=== PATIENT | female | born 1960 | race African-American/Black ===

== ENCOUNTER 2016-09-17 03:33 | Inpatient (IN) ==
[2016-09-11 12:53] LABS: MANUAL DIFF NEEDED? NO
[2016-09-11 12:53] LABS: URINE MICRO REVIEW NEEDED? NO; URINE SOURCE CLEAN CATCH
[2016-09-11 13:02] LABS: BASO% 1.1 % (0.0-0.8); EOS# 0.12 X1000 (0.0-0.7); EOS% 2.2 % (0.0-10.0); HEMATOCRIT 35.7 % (37.0-47.0); HEMOGLOBIN 12.7 g/dL (12.0-16.0); LYMPH% 25.1 % (20.5-51.1); MCH 27.7 PG (27-31); MCHC 35.6 g/dL (33-37); MCV 77.9 FL (81-99); MONO# 0.46 X1000 (0.11-0.59); MONO% 8.3 % (1.7-9.3); MPV 9.6 FL (7.4-10.4); NEUT% 63.3 % (42.2-75.2); PLT 353 X1000 (130-400); RBC 4.58 XMIL (4.2-5.4)
[2016-09-11 13:06] LABS: BILIRUBIN URINE NEGATIVE (NEGATIVE); BLOOD URINE NEGATIVE (NEGATIVE); COLOR YELLOW; GLUCOSE URINE NEGATIVE (NEGATIVE); LEUKOCYTES URINE NEGATIVE (NEGATIVE); NITRITE URINE NEGATIVE (NEGATIVE); PH URINE 6.5; PROTEIN URINE NEGATIVE (NEGATIVE); SP GRAVITY URINE 1.018; TURBIDITY URINE CLEAR (CLEAR); UROBILINOGEN URINE NORMAL (NORMAL)
[2016-09-11 13:11] LABS: UR EPITHELIAL CELLS <10 /HPF (<10); URINE BACTERIA NEGATIVE /HPF; URINE RBC <10 /HPF (<10); URINE WBC <10 /HPF (<10)
[2016-09-11 13:11] LABS: INR 0.96; PROTIME 10.1 Seconds (9.2-11.7); PTT 24.8 Seconds (22.0-36.0)
--- NOTE | 2016-09-11 13:20 | EKG Report ---
Test Performed on : 09/11/2016 12:33:27 PM Test Reason : PAT Blood Pressure : / mmHG Vent. Rate : 085 BPM Atrial Rate : 085 BPM P-R Int : 166 ms QRS Dur : 084 ms QT Int : 364 ms P-R-T Axes : 063 050 047 degrees QTc Int : 433 ms Normal sinus rhythm. Normal ECG No previous ECGs available Confirmed by Clementine PAREDES, Miles Dixon ([id number]) on 09/12/2016 7:59:32 PM
[2016-09-11 13:39] LABS: AGAP 13; BUN 12 mg/dL (8-22); CALCIUM 9.2 mg/dL (8.8-10.2); CHLORIDE 101 mmol/L (98-107); COSMO 283; POTASSIUM 3.6 mmol/L (3.5-5.1); SODIUM 141 mmol/L (136-145); TCO2 27 mmol/L (25-35)
[2016-09-17] MEDS ORDERED: REGLAN ONE (07:05)
[2016-09-17] MEDS ORDERED: CELEBREX ONE (07:05)
[2016-09-17] MEDS ORDERED: PEPCID ONE (07:05)
[2016-09-17] MEDS ORDERED: LYRICA ONE (07:05)
[2016-09-17] MEDS ORDERED: COLACE ONE (07:05)
[2016-09-17] MEDS ORDERED: KEFZOL 2 GM/D5W 2 GM/50 ML IVPB ONE (07:06)
[2016-09-17] MEDS ORDERED: LR 1,000 ML ONE ×2 (07:06→11:03)
--- NOTE | 2016-09-17 07:08 | HISTORY AND PHYSICAL ---
CHIEF COMPLAINT: Left knee pain. HISTORY OF PRESENT ILLNESS: This is a 55-year-old, black female with a long history of pain in her left knee. She had a knee scope performed several years ago which indicated severe degenerative disease. She has had considerable conservative treatment. The knee has become so severe, now she has difficulty walking and has severe pain. She was evaluated in the office and found to need a left total knee arthroplasty. The surgical procedure, as well as risks and benefits have been explained to patient and that this time she has agreed to proceed. PAST MEDICAL HISTORY/ALLERGIES: Not allergic to any medications. SERIOUS ILLNESSES: Hypertension. PAST SURGERIES: Left knee scope and hysterectomy. REGULAR MEDICATIONS: Diovan and tramadol. REVIEW OF SYSTEMS: HEENT: No history of migraines, dizziness, loss of conscious or CVA. Respiratory: She is a nonsmoker. No history of asthma, emphysema or shortness of breath. Heart: No history of heart abnormalities. Abdomen: Has history of some reflux. No history of any bowel or bladder abnormalities. PHYSICAL EXAMINATION: GENERAL: This is a 55-year-old, black female, alert and oriented. She does not have a primary care physician. HEENT: Pupils equal, round, reactive. EOM intact. NECK: Good range of motion without adenopathy. RESPIRATORY: Respirations equal, unlabored, clear bilaterally. HEART: Regular rate and rhythm. ABDOMEN: Soft, nontender. Bowel sounds present. EXTREMITIES: Complains of severe pain in her left knee. The pain radiates down her leg. She has a severe limp when she is walking. IMPRESSION: Degenerative disease, left knee. PLAN: Admit at this time for left total knee arthroplasty. Dictated by Emmanuel Landrum RN for Roderick Mcnamara MD This chart was documented by the indicated scribe, Emmanuel Landrum RN and accurately reflects the services I performed and decisions made by me, Roderick Mcnamara MD, as attested by the provider's signature. cc: Roderick Mcnamara MD
[2016-09-17] MEDS ORDERED: VANCOMYCIN ONE (07:36)
[2016-09-17] MEDS ORDERED: TORADOL ONE (07:36)
[2016-09-17] MEDS ORDERED: MARCAINE 0.25% PF/EPI 1:200,000 ONE (07:36)
[2016-09-17] MEDS ORDERED: SODIUM CHLORIDE 0.9% ONE (07:36)
[2016-09-17] MEDS ORDERED: DURAMORPH ONE (07:36)
[2016-09-17] MEDS ORDERED: CYKLOKAPRON 1,000 MG/NS 1,000 MG/100 ML IVPB ONE ×2 (07:36→07:37)
[2016-09-17] MEDS ORDERED: NEOSPORIN G.U. IRRIGANT ONE (07:37)
[2016-09-17] MEDS ORDERED: EXPAREL 1.3% ONE (07:37)
[2016-09-17] MEDS ORDERED: CLAVE SECONDARY SET 11953 ONE (07:37)
[2016-09-17] MEDS ORDERED: DIPRIVAN 1% 500 MG/50 ML BOTTLE ONE (08:29)
[2016-09-17 09:01] LABS: URINE SOURCE CATH
[2016-09-17 09:12] LABS: BILIRUBIN URINE NEGATIVE (NEGATIVE); BLOOD URINE NEGATIVE (NEGATIVE); CLARITY CLEAR (CLEAR); COLOR YELLOW; GLUCOSE URINE NEGATIVE (NEGATIVE); LEUKOCYTES URINE NEGATIVE (NEGATIVE); NITRITE URINE NEGATIVE (NEGATIVE); PROTEIN URINE NEGATIVE (NEGATIVE); SP GRAVITY URINE 1.015
[2016-09-17 09:20] LABS: URINE CAST NONE SEEN /LPF; URINE EPITHELIAL CELLS <10 /HPF (<10); URINE RBC <10 /HPF (<10); URINE WBC <10 /HPF (<10)
[2016-09-17 09:21] LABS: URINE CRYSTAL NONE SEEN /HPF
[2016-09-17] MEDS ORDERED: NS 1,000 ML ONE (10:58)
[2016-09-17] MEDS ORDERED: OFIRMEV 1000 MG/ISOTONIC SOLN 1,000 MG/100 ML BOTTLE ONE (11:02)
[2016-09-17] MEDS ORDERED: ZOFRAN ONE (11:02)
[2016-09-17] MEDS ORDERED: DECADRON ONE (11:03)
[2016-09-17] MEDS ORDERED: DIPRIVAN 1% ONE (11:04)
[2016-09-17] MEDS ORDERED: FENTANYL ONE (11:04)
[2016-09-17] MEDS ORDERED: VERSED ONE (11:04)
--- NOTE | 2016-09-17 11:16 | OPERATIVE NOTE ---
PROCEDURE DATE: 09/17/2016 PREOPERATIVE DIAGNOSIS: Degenerative joint disease, left knee with significant varus deformity. POSTOPERATIVE DIAGNOSIS: Degenerative joint disease, left knee with significant varus deformity. PROCEDURE: Left total knee replacement with DePuy stemmed knee replacement. SURGEON: Peter Mcnamara MD STAFF ATTORNEY: Leeanne Reed ANESTHESIA: Spinal. COMPLICATION: None. PROCEDURE IN DETAIL: A 56-year-old female presents for a left total knee. Risks, benefits, and no guarantees were discussed, and she is willing to proceed. She was taken to the operating room and satisfactory anesthesia obtained. The left knee was prepped and draped in usual sterile fashion. A time-out was taken to confirm operative site, procedure, and patient. The leg was wrapped with an Esmarch. Tourniquet inflated to 350 mmHg. A straight midline incision was made over the front of the knee, followed by a quad tendon sparing arthrotomy. The patella was everted and resurfaced with freehand technique and sized to a 32 dome patella. The drill paddle was used to prepare for this and the patella subluxed laterally. An intramedullary hole was made in the distal femur and the distal femoral cutting block secured in 5 degrees of valgus. After resection of the distal femur the knee was flexed and the tibial cutting block secured using extramedullary alignment rods. The tibial resection was made. Level with the depressed medial side. Care was taken to preserve the collateral ligaments and the posterior neurovascular bundle. Medial soft tissue was released due to medial contracture soft tissue balanced the knee. The tibia was sized to a size 2.5 PFC Sigma tibial tray, and reamed and broached for the stem and the metaphyseal sleeve. After completion of the tibial implant and trial, the femur was sized to a size 3 PFC Sigma femur and the posterior, anterior, and chamfer cuts sequentially cut. A trial reduction was performed with good range of motion and stability after medial soft tissue release with a 17.5 posterior stabilized poly. After preparation of the femur, the bony surfaces were thoroughly irrigated and pulsatile lavage used to clean off any bone surfaces. The implants were assembled on the back table with both the femur, femoral sleeve, and stem in the tibia, tibial stem and sleeve. The components were as noted MBT revision metaphyseal porous 28 mm, a universal femoral sleeve full porous 31 mm, a universal stem fluted 75 x 16 for the femur, a universal stem fluted 75 x 14 for the tibia, a size 2.5 MBT revision tibial tray, a 5 degree Sigma femoral adapter, a Sigma femoral adapter bolt, a Sigma femoral TC3 cemented size 3 left posterior stabilized femoral component, a 32 dome patella, and a size 17.5, TC3 polyethylene. The implants were then placed in the knee and cemented and press-fit into the bone. After the cement cured, repeat trial reduction was performed with a 17.5 poly with good range of motion and stability. Midline patellar tracking was noted with 0-120 degrees of motion. The permanent poly was placed in the irrigated. The joint capsule was injected with Exparel and Hemovac drain placed. The arthrotomy was closed over the drain with #1 Vicryl the subcutaneous with 2-0 Vicryl, and the skin with skin anjel. Sterile dressings completed the closure and the patient was recovered from anesthesia and transferred to the recovery room in stable condition. No intraoperative complications were noted. Instrument count and sponge count was correct at the time of closure. cc: Roderick Mcnamara MD
--- NOTE | 2016-09-17 11:26 | Diag Imaging Result Document ---
PROCEDURE NAME: KNEE 1-2 VIEWS-LEFT - 09/17/2016 PORTABLE LEFT KNEE, 2 VIEWS: FINDINGS: There are postsurgical changes of recent total knee prosthesis placement. Alignment appears satisfactory. There are no complicating features identified.
[2016-09-17] MEDS: COLACE PO SCH ×2 (13:27→20:54)
[2016-09-17] MEDS: CELEBREX PO SCH (13:27)
[2016-09-17] MEDS: NS 1,000 ML IV SCH ×2 (13:28→20:54)
[2016-09-17] MEDS: DIOVAN PO SCH (13:28)
[2016-09-17] MEDS: HYDROCHLOROTHIAZIDE PO SCH (13:28)
[2016-09-17] MEDS: MORPHINE IV PRN ×4 (14:15→23:39)
[2016-09-17] MEDS ORDERED: KEFZOL 1 GM/D5W 1 GM/50 ML IVPB IV SCH (16:30)
[2016-09-17] MEDS: NORCO-10 PO PRN (20:54)
[2016-09-17] MEDS: PERIDEX MT SCH (20:55)
[2016-09-17] MEDS ORDERED: BENADRYL PO PRN (23:25)
[2016-09-18] MEDS ORDERED: KEFZOL 2 GM/D5W 2 GM/50 ML IVPB IV ONE (00:30)
[2016-09-18] MEDS: NORCO-10 PO PRN ×2 (01:27→06:37)
[2016-09-18] MEDS: MORPHINE IV PRN ×3 (03:02→17:02)
[2016-09-18] MEDS: NS 1,000 ML IV SCH (03:35)
[2016-09-18 06:26] LABS: HEMOGLOBIN 8.9 g/dL (12.0-16.0)
[2016-09-18] MEDS: XARELTO PO SCH (06:37)
[2016-09-18 07:04] LABS: AGAP 9; BUN 9 mg/dL (8-22); CALCIUM 8.8 mg/dL (8.8-10.2); CHLORIDE 104 mmol/L (98-107); COSMO 280; SODIUM 141 mmol/L (136-145); TCO2 28 mmol/L (25-35)
[2016-09-18] MEDS ORDERED: PRILOSEC PO ONE (07:45)
[2016-09-18] MEDS: HYDROCHLOROTHIAZIDE PO SCH (08:52)
[2016-09-18] MEDS: DIOVAN PO SCH (08:52)
[2016-09-18] MEDS: NEURONTIN PO SCH ×2 (08:53→20:11)
[2016-09-18] MEDS: CELEBREX PO SCH (08:53)
[2016-09-18] MEDS: COLACE PO SCH ×2 (08:53→20:10)
[2016-09-18] MEDS: PERIDEX MT SCH ×2 (08:53→20:10)
[2016-09-18] MEDS: PERCOCET-10 PO PRN ×4 (09:50→22:30)
[2016-09-18] MEDS: ULTRAM PO PRN ×2 (12:15→23:22)
--- NOTE | 2016-09-18 14:46 | PROGRESS NOTE ---
DATE: 09/18/2016 Ms. Chu is doing well. She is sitting up in the bed. Currently her vital signs are stable. There are no signs or symptoms of infection or DVT. Her dressing is dry and clean. She is actually ambulating with physical therapy today. She ambulated about 40 feet with a front wheel walker. The neuro intact. We plan on her going to an inpatient physical therapy. We will reassess her tomorrow and see if she is okay to discharge tomorrow. Dictated by LEANNE Dickerson for Roderick Mcnamara MD cc: LEANNE Dickerson MD
[2016-09-18] MEDS: XANAX PO SCH (20:10)
[2016-09-18] MEDS: DILAUDID PO PRN (20:11)
[2016-09-19] MEDS: DILAUDID PO PRN ×2 (02:05→18:26)
[2016-09-19 06:04] LABS: HEMATOCRIT 26.3 % (37.0-47.0)
[2016-09-19] MEDS: PERCOCET-10 PO PRN ×4 (06:52→20:21)
[2016-09-19] MEDS: PRILOSEC PO SCH (06:53)
[2016-09-19] MEDS: XARELTO PO SCH (06:53)
[2016-09-19] MEDS: NEURONTIN PO SCH ×4 (08:42→22:57)
[2016-09-19] MEDS: DIOVAN PO SCH (08:49)
[2016-09-19] MEDS: CELEBREX PO SCH (08:49)
[2016-09-19] MEDS: COLACE PO SCH ×2 (08:49→22:57)
[2016-09-19] MEDS: HYDROCHLOROTHIAZIDE PO SCH (08:50)
[2016-09-19] MEDS: PERIDEX MT SCH ×2 (08:50→22:57)
[2016-09-19] MEDS: ULTRAM PO PRN (14:15)
[2016-09-19] MEDS: XANAX PO SCH (22:57)
[2016-09-20] MEDS: PERCOCET-10 PO PRN ×3 (01:19→09:04)
[2016-09-20 06:10] LABS: HEMATOCRIT 25.3 % (37.0-47.0); HEMOGLOBIN 8.6 g/dL (12.0-16.0)
[2016-09-20] MEDS: XARELTO PO SCH (06:49)
[2016-09-20] MEDS: PRILOSEC PO SCH (06:50)
[2016-09-20] MEDS: ULTRAM PO PRN (06:50)
[2016-09-20] MEDS: NEURONTIN PO SCH (09:04)
[2016-09-20] MEDS: COLACE PO SCH (09:04)
[2016-09-20] MEDS: DIOVAN PO SCH (09:04)
[2016-09-20] MEDS: PERIDEX MT SCH (09:04)
[2016-09-20] MEDS: HYDROCHLOROTHIAZIDE PO SCH (09:04)
[2016-09-20] MEDS: CELEBREX PO SCH (09:04)
--- NOTE | 2016-09-20 09:07 | DISCHARGE SUMMARY ---
ADMISSION DATE: 09/17/2016 DISCHARGE DATE: ADMITTING DIAGNOSES: 1. Degenerative joint disease of the left knee. 2. Hypertension. DISCHARGE DIAGNOSES: 1. Degenerative joint disease of the left knee. 2. Hypertension. ADMITTING HISTORY AND HOSPITAL COURSE: Ms. Chu is a 55-year-old female who had a degenerative joint disease of the left knee. She was admitted to the hospital for a left total knee arthroplasty. After surgery, she remained afebrile. Her vital signs remained stable. There were no signs or symptoms of infection or DVT. Her dressing is dry. Her incision is clean. Currently her hematocrit is 25.3 and stable. She is ambulating with a front wheel walker about 60 feet. We plan to discharge her to [facility] today. DISCHARGE MEDICATIONS: Diovan HCT 320-12.5 mg tablet 1 p.o. daily, tramadol 50 mg p.o. q.8 hours p.r.n., Xarelto 10 mg p.o. daily for 14 days and Percocet 10 mg 1-2 p.o. q.4-6 hours p.r.n. for pain. DISCHARGE INSTRUCTIONS: Ms. Chu is discharged today to her inpatient rehab facility where she will begin a physical therapy regimen. While she is there, they will discontinue her anjel in about 10 days. She will need to follow with Dr. Mcnamara after she discharges from the rehab facility. I discussed with her that she would be on Xarelto and Percocet. I went over the indications and the precautions for those medications. Discussed with her that if she has any questions or concerns to feel free to call the office at any time. Like I said, she will need to follow up with Dr. Mcnamara after she discharges from the rehab facility. Dictated by LEANNE Dickerson for Roderick Mcnamara MD cc: LEANNE Dickerson MD
[2016-09-20 12:19] VITALS: BP 131/88
== END 2016-09-20 12:52 ==
LOC: SURHOLD 03:33 → 4N 12:26
PROVIDERS: ADMIT Orthopaedic Surgery Adult Reconstructive Orthopaedic Surgery; ATTEND Orthopaedic Surgery Adult Reconstructive Orthopaedic Surgery